=== PATIENT | male | born 1990 | race Caucasian/White ===

== ENCOUNTER 2020-10-21 09:08 | Outpatient (REF) | payer OTHER, SELFPAY ==
[2020-10-21 10:07] LABS: MANUAL DIFF FLAG NO
[2020-10-21 10:15] LABS: Basophils Absolute Auto 0.1 X10*3/uL (0.0-0.2); Basophils Percent Auto 1.6 % (0-2); Eosinophils Absolute Auto 0.2 X10*3/uL (0.0-0.4); Eosinophils Percent Auto 3.5 % (0-4); Hematocrit 45.4 % (42-52); Hemoglobin 16.2 g/dl (14.0-18.0); Imm Gran Abs Auto 0.01 X10*3/uL (0.00-0.03); Imm Gran Pct Auto 0.2 % (0.0-0.4); Lymphocytes Absolute Auto 1.9 X10*3/uL (1.2-4.9); Lymphocytes Percent Auto 31.3 % (20-40); Mean Corpuscular HGB Conc 35.7 g/dl (31.0-36.0); Mean Corpuscular Hemoglobin 31.4 pg (27.0-33.0); Mean Platelet Volume 11.7 fL (9.4-12.4); Monocytes Absolute Auto 0.4 X10*3/uL (0.1-1.2); Monocytes Percent Auto 6.6 % (2-11); Neutrophils Absolute Auto 3.5 X10*3/uL (2.0-8.3); Neutrophils Percent Auto 56.8 % (45-73); Platelet Count 238 X10*3/uL (160-400); Red Blood Count 5.16 X10*6/uL (4.60-5.80); Red Cell Distribution Width 12.2 % (11.0-16.0); White Blood Count 6.1 X10*3/uL (4.8-10.8)
[2020-10-21 10:31] LABS: Alanine Aminotransferase 32 U/L (0-40); Albumin Level 4.8 g/dL (3.5-5.0); Alkaline Phosphatase 75 U/L (39-117); Anion Gap 12 (12-20); Aspartate Amino Transferase 30 U/L (5-37); Bilirubin Total 0.8 mg/dL (0.0-1.0); Blood Urea Nitrogen 18 mg/dL (9-16); Calcium 9.6 mg/dL (8.4-10.2); Carbon Dioxide 29 mmol/L (22-29); Chloride 104 mmol/L (96-108); Cholesterol 196 mg/dL; Estimated Glomerular Filt Rate > 60; Glucose Fasting 86 mg/dL (60-99); HDL Cholesterol 32 mg/dL; LDL Cholesterol Calculated 134 mg/dl; Potassium 4.2 mmol/L (3.3-5.1); Sodium 141 mmol/L (135-145); Total Protein 7.7 g/dL (6.5-8.0); Triglycerides 153 mg/dL
[2020-10-21 10:53] LABS: TSH reflex Free T4 1.63 uIU/mL (0.32-4.0)
[2020-10-21 10:56] LABS: Creatinine Urine 180.84 mg/dL; Microalbumin Urine < 5.0 mg/L
[2020-10-21 12:08] LABS: CT PCR NOT DETECTED (Not Detect.); NG PCR NOT DETECTED (Not Detect.)
[2020-10-23 08:03] LABS: HBS Num1 2.18 mIU/mL (0-7.99); HBc Num1 0.14 S/CO (0.00-0.79); HBsAGNum1 0.29 S/CO (0.00-0.99); Hepatitis B Core Antibody Nonreactive (Nonreactive); Hepatitis B Surface Antigen Negative (Negative); ~Hepatitis B Surface Antibody NONREACTIVE (Nonreactive)
[2020-10-23 08:08] LABS: HIV AB/AG Nonreactive (Nonreactive); HIV Num 1 0.05 S/CO (0.00-0.99); ~HepC Num1 0.07 S/CO (0.00-0.79); ~Hepatitis C Antibody Nonreactive (Nonreactive)
[2020-10-23 08:44] LABS: Syphilis Screen Nonreactive (Nonreactive)
== END 2020-10-21 09:09 | disposition home or self-care (01) ==
LOC: HO.LAB 09:08
PROVIDERS: PCP Family Medicine; Visit Provider Family Medicine
DX: Z00.00 Encounter for general adult medical examination without abnormal findings (principal); Z11.3 Encounter for screening for infections with a predominantly sexual mode of transmission; Z11.4 Encounter for screening for human immunodeficiency virus [HIV]; I10 Essential (primary) hypertension
CPT/HCPCS: 80053; 80061; 82043; 84443; 85025; 86704; 86706; 86780; 86803; 87340; 87389; 87491; 87591

== ENCOUNTER 2021-12-07 16:42 | Outpatient (REF) | payer OTHER, SELFPAY ==
--- NOTE | ~2021-12-07 | XR_ITS ---
EXAMINATION: XR HAND, LEFT CLINICAL INFORMATION: Unspecified injury of left wrist, hand and fingers. COMPARISON: None TECHNIQUE: PA, lateral, and oblique views of the left hand. FINDINGS: The bones and soft tissues are normal. No fracture. Alignment is anatomic. Joint spaces are maintained. No erosions or soft tissue calcifications. XR/XR hand LT 2V IMPRESSION: No acute osseous abnormality.
== END 2021-12-07 16:43 | disposition home or self-care (01) ==
LOC: HO.XRAY 16:42
PROVIDERS: PCP Family Medicine; Visit Provider Family Medicine
DX: S69.92XA Unspecified injury of left wrist, hand and finger(s), initial encounter (principal)
CPT/HCPCS: 73120

== ENCOUNTER 2023-12-02 15:44 | Outpatient (AMB) | payer OTHER, SELFPAY ==
--- NOTE | 2023-12-02 15:51 | MHC.PC.OV ---
Vital Signs 12/02/23 15:54 Height 6 ft 3 in Weight 235 lb 2 oz BMI 29.4 BP 140/62 H Blood Pressure Location Lt brachial Position Sitting Pulse 62 Pulse Source Pulse Oximeter Pulse Oximetry (%) 100 Oxygen Delivery Method Room Air Intake Visit Reasons: CPE Follow up labs Intake Note: Patient is here for his physical today, would like referral for sleep medicine, he snores, and wakes up in the middle of the night, doesn't feel well rested, and would like to get back on Celexa again. Allergies No Known Allergies Allergy (Verified 12/07/21 16:03) Medication List - Last Reconciled 12/02/23 by Asif Linares MD citalopram 40 mg PO DAILY 30 days lisinopril 20 mg PO DAILY 30 days metoprolol succinate ER 25 mg PO DAILY Tobacco use date assessed: 12/02/23 Dental Screening Dental Screen Date: 12/02/23 Did you have a dental visit in the last 12 months?: Yes Did you have a dental problem in the last 6 months where you did not have access to dental care?: No Was dental information given to patient?: Yes HPI CPE Follow up labs HPI Details 33 y/o male presents for a CPE with f/u labs and health maintenance. No recent labs to review. Blood pressure today 140/62. He states he is no longer on metoprolol 25mg. HPI Comments History of Present Illness Details Documentation assistance for Asif Linares MD, was provided by Taurus Contreras, Mounting Machine Operator on 12/02/2023 at 4:56 PM EST. I, Dr. Linares, have read, observed, and verified documentation. [facility] Medical History Sciatica Anxiety HBP (high blood pressure) SVT (supraventricular tachycardia) Surgical History [place] teeth extracted Family History (Updated 12/02/23 @ 16:06 by Lashawn Grady CMA) Father High cholesterol Mother Substance abuse in family Brother Substance abuse in family Other Mental health disorder Social History Housing: Apartment Alcohol intake: current Alcohol intake frequency: holidays/special occasions only Alcohol type: beer Patient Tobacco Use Status: Never used Tobacco e-Cigarette/Vaping Use: Never Used Second Hand Smoke Exposure: No service: No Current occupational status: employed 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 1. Little interest or pleasure in doing things: several days 2. Feeling down, depressed, or hopeless: several days 3. Trouble falling or staying asleep, or sleeping too much: nearly every day 4. Feeling tired or having little energy: nearly every day 5. Poor appetite or overeating: not at all 6. Feeling bad about yourself - or that you are a failure or have let yourself or your family down: several days 7. Trouble concentrating on things, such as reading the newspaper or watching television: several days 8. Moving or speaking so slowly that other people could have noticed. Or the opposite - being so fidgety or restless that you have been moving around a lot more than usual: several days 9. Thoughts that you would be better off or of hurting yourself in some way: not at all Total score: 11 Depression Screening Interpretation: Positive Depression Screening Done: Yes 42839 - PHQ-9 Billing: Yes Source: Developed by Drs. Gelacio Gillette, Yuni Frey, Stan Patel and colleagues, with an educational lissy from [employer]. Thrive Questionnaire Date Thrive assessed: 12/02/23 I am a: Patient What is your living situation today?: I have a steady place to live Within the past 12 months, did the food you bought not last and you didn't have the money to get more?: Never true Within the past 12 months, did you worry whether your food would run out before you got money to buy more?: Never true Do you have trouble paying for medicines?: No Do you have trouble getting transportation to medical appointments?: No Do you have trouble paying your heating and electricity bill?: No Do you have trouble taking care of your child, family member or friend?: No Do you have trouble with day-to-day activities such as bathing, preparing meals, shopping, managing finances, etc.?: No Are you currently unemployed and looking for a job?: No Are you interested in more education?: No THRIVE Score: 0 AUDIT C Alcohol Use Questionnaire (AUDIT-C) 1. How often do you have a drink containing alcohol?: 2-3 times a week 2. How many drinks containing alcohol do you have on a typical day when you are drinking?: 7 to 9 3. How often do you have six or more drinks on one occasion?: Weekly Total Score: 9 AVERY-7 AMB Questionnaire AVERY-7 Date AVERY - 7 assessed: 12/02/23 Feeling nervous, anxious, or on edge: 3 = Nearly every day Not being able to stop or control worryin = Nearly every day Worrying too much about different things: 3 = Nearly every day Trouble relaxin = Nearly every day Being so restless that it is hard to sit still: 1 = Several days Becoming easily annoyed or irritable: 3 = Nearly every day Feeling afraid as if something awful might happen: 1 = Several days Total AVERY-7 score (0-4 normal; 5-9 mild; 10-14 moderate; 15-21 severe): 17 Source: Developed by Drs. Gelacio Gillette, Yuni Frey, Stan Patel and colleagues, with an educational lissy from [employer]. AVERY-7 Assessment Billing AVERY-7 Assessment Tool: AVERY-7 Assessment 73951 Review of Systems Const Denies chills, Denies fatigue, Denies fever(s), Denies headache(s) and Denies weakness Eyes Denies change in vision ENT Denies dizziness and Denies headache(s) Card Denies dyspnea Resp Denies cough, Denies dyspnea, Denies wheezing and Denies other (shortness of breath) GI Denies abdominal pain, Denies melena, Denies hematochezia, Denies change in bowel habits, Denies dyspepsia and Denies nausea Denies hematuria and Denies dysuria Musc Denies numbness and Denies tingling Skin/Breast Denies rash, Denies unusual bruising and Denies wounds Neuro Denies dizziness, Denies headache(s), Denies numbness, Denies Sensory deficit (Neuro), Denies tingling and Denies weakness Psych Reports anxiety and Reports depression Endo Denies fatigue Jareth/Lymph Denies easy bleeding and Denies easy bruising Aller/Immun Denies wheezing Physical exam (Primary Care) Vital Signs: Last Vital Signs Pulse 62 12/02/23 15:54 BP 140/62 H 12/02/23 15:54 Pulse Ox 100 12/02/23 15:54 Oxygen Delivery Method Room Air 12/02/23 15:54 BMI result Body Mass Index 29.4 Tobacco/Smoking Status: Tobacco use Status Tobacco use date assessed 12/02/23 12/02/23 16:10 Patient Tobacco Use Status Never used Tobacco 12/02/23 15:53 e-Cigarette/Vaping Use Never Used 12/02/23 15:53 PHQ-9: PHQ-9 Score PHQ-9: Total score 11 12/02/23 16:42 Depression Screening Interpretation: Positive Thrive Assessment: Date of Thrive Assessment Date Thrive assessed 12/02/23 12/02/23 16:10 Const General: well developed; No acute distress Nutritional Appearance: well nourished Orientation/consciousness: patient oriented x3 HENMT Head: Yes normocephalic and Yes atraumatic Ears: hearing grossly normal bilaterally and TM's normal bilaterally General nose exam: Normal external nose present and Normal nares present Mouth: Normal oral and palatal mucosa present and moist mucous membranes Teeth and gingiva: dentition normal Throat: Yes posterior oropharynx normal Eyes General: appearance normal, both eyes and all related structures Pupils: Equal, round and reactive pupils present EOM: EOMs intact bilaterally Neck Neck: Yes normal visual inspection, Yes no lymphadenopathy and Yes trachea midline Thyroid: Thyroid normal Carotids: no bruits Lymphatic: no lymphadenopathy noted Chest Chest palpation & inspection: normal inspection of the chest Resp Effort & Inspection: normal respiratory effort Auscultation: clear to auscultation bilaterally Cardio Rate: regular rate Rhythm: regular rhythm Heart sounds: S1 normal heart sound present, S2 normal heart sound present, no gallops, no murmurs and no rubs Bruits: no abdominal aortic bruits and no carotid bruits GI Palpation (GI): No Abdominal aortic bruit present, Soft to palpation, nontender, No hepatosplenomegaly present and No Rebound tenderness present Auscultation: normal bowel sounds General: Yes no CVA tenderness Back/Spine/Pelvis Back: no CVA tenderness Cervical Spine: cervical ROM normal and No Cervical spine tenderness Thoracic/Lumbar Spine: thoraco-lumbar ROM normal, No pain with thoraco-lumbar ROM, No thoracic spinal tenderness and No lumbar spinal tenderness Skin Lesions: no lesions Rashes: no rashes Trauma: no lacerations or abrasions Wounds: no wounds Nails: normal Neuro General: patient oriented x3 and gait normal Cranial nerves: Yes Equal, round and reactive pupils present Cognition (Neuro): normal cognition Gait exam (Neuro): Normal gait present Motor exam (neuro): 5/5 motor strength present throughout Sensory Exam: No Sensory deficit (Neuro) Deep tendon reflexes (DTR's): Right patellar reflex intensity grade: 2+ and Left patellar reflex intensity grade: 2+ Extrem General: Yes normal to inspection and No edema Psych Appearance: grossly normal Affect: normal affect Attitude: cooperative Thought process: Normal thought process present Assessment and Plan Assessment & Plan (1) Annual physical exam: Code(s): Z00.00 - Encounter for general adult medical examination without abnormal findings Plan: 33-year-old?male?presents?for?complete?physical?exam Encouraged?healthy?diet?with?active?lifestyle?and?plenty?of?exercise (2) Essential hypertension: Code(s): I10 - Essential (primary) hypertension Plan: Blood?pressure?is?high. Will?start?lisinopril.??He?had?been?on?beta-nikko?in?the?past?due?to?some?tachycardia?but?this?has?not?recurred?and?heart?rate?is?62?today. Will?follow-up?in?about?a?month Blood?pressure?may?also?be?elevated?due?to?sleep?apnea.??We?may?be?able?to?discontinue?this?medication?if?blood?pressure?is?better?once?sleep?apnea?is?treated (3) Sleep apnea: Code(s): G47.30 - Sleep apnea, unspecified Plan: Referred?to?Sleep?Medicine (4) Depression with anxiety: Code(s): F41.8 - Other specified anxiety disorders Plan: Patient?had?been?on?citalopram?in?the?past He?will?restart?this?medication He?can?start?at?20?mg?daily?and?titrate?up?to?40?mg?daily?if?he?would?like. Orders: Orders Comprehensive [place]. Panel Fast Today Z00.00 - Encounter for general adult medical examination without abnormal findings TSH reflex Free T4 Today Z00.00 - Encounter for general adult medical examination without abnormal findings Complete Blood Count Auto Diff Today Z00.00 - Encounter for general adult medical examination without abnormal findings Lipid Panel Today Z00.00 - Encounter for general adult medical examination without abnormal findings Microalbumin, Random (w Creat) Today I10 - Essential (primary) hypertension UA and rflx microscopic Today Z00.00 - Encounter for general adult medical examination without abnormal findings Referrals Sleep Medicine Referral G47.30 - Sleep apnea, unspecified Medications: New lisinopril 20 mg PO DAILY 30 days 30 tabs 2RF Refilled citalopram 40 mg PO DAILY 30 days 30 tabs 2RF Coding Level of Care Code Est Pt Level 3 (22081) Est Pt Prev Care 18-39y(81284) Diagnoses Annual physical exam Z00.00 Essential hypertension I10 Sleep apnea G47.30 Depression with anxiety F41.8 Additional Codes AVERY-7 Assessment Billing - AVERY-7 Assessment Tool: AVERY-7 Assessment 07953 ([id number])
[2023-12-02 15:54] VITALS: BP 140/62; PULSE 62; O2SAT 100; BMI 29.4
== END 2023-12-02 16:59 | disposition home or self-care (01) ==
PROVIDERS: PCP Family Medicine; Visit Provider Family Medicine
DX: Z00.00 Encounter for general adult medical examination without abnormal findings (principal); I10 Essential (primary) hypertension; G47.30 Sleep apnea, unspecified; F41.8 Other specified anxiety disorders
CPT/HCPCS: 96127; 99213; 99395

== ENCOUNTER 2024-06-14 07:48 | Outpatient (AMB) | payer OTHER, SELFPAY ==
--- NOTE | 2024-06-14 07:56 | MHC.OFFVIS ---
Vital Signs 06/14/24 07:58 Height 6 ft 3 in Weight 259 lb BMI 32.4 Intake Visit Reasons: INP- MARY AN[facility] Intake Note: Patient presents for MARY ANNE. Allergies No Known Allergies Allergy (Verified 06/14/24 08:00) Medication List - Last Reconciled 06/14/24 by Katelyn Reilly MD citalopram 20 mg PO DAILY 90 days fluticasone propionate 50 mcg/actuation (Flonase Allergy Relief) 1 spray intranasal BID lisinopril 20 mg PO DAILY 30 days metoprolol succinate ER 25 mg PO DAILY HPI Comments Details: 33y/o comes for sleep evaluation . Main complaints-Frequent arousals, snoring , gasping arousals, hypersomnia Sleep questionnaire- Difficulty falling asleep-no Difficulty staying asleep-yes Number of [id number] Snoring-yes Witnessed apneas-no Gasping arousals-yes Nocturia-no GERD-yes Vivid dreams-no Acting out dreams -no Abnormal behavior in sleep-/no ABnormal movements in sleep-no Morning headaches-yes Excessive daytime sleepiness-yes Daytime naps- yes restless legs- no Hallucinations-no sleep paralysis- no Drop attacks-no Sleep study-yes- 9 years ago Home sleep study 3 hrs was recorded and was inconclusive. PENDING SALE TO [facility] Medical History (Updated 06/14/24 @ 08:21 by Katelyn Reilly MD) Hypersomnia Snoring Sciatica Anxiety HBP (high blood pressure) SVT (supraventricular tachycardia) Surgical History [place] teeth extracted Family History Father High cholesterol Mother Substance abuse in family Brother Substance abuse in family Other Mental health disorder Social History Housing: Apartment Alcohol intake: current Alcohol intake frequency: holidays/special occasions only Alcohol type: beer Patient Tobacco Use Status: Never used Tobacco e-Cigarette/Vaping Use: Never Used Second Hand Smoke Exposure: No service: No Current occupational status: employed 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 Current occupational exposures/hazards: No Cognitive needs: No Hearing needs: No Vision needs: No Physical Exam Vital Signs: BMI result Body Mass Index 32.4 Const General: cooperative, healthy appearing, comfortable and anxious Nutritional Appearance: obese Orientation/consciousness: patient oriented x3 Neuro General: patient oriented x3, gait normal, tone normal, moves all extremities and no focal motor deficits Assessment & Plan Assessment & Plan (1) Snoring: Code(s): R06.83 - Snoring Category: Medical (2) Hypersomnia: Code(s): G47.10 - Hypersomnia, unspecified Category: Medical Plan Will schedule him for an in lab sleep study to evaluate for sleep apnea. Orders: Orders RT PSG in-lab sleep study Today G47.10 - Hypersomnia, unspecified, I10 - Essential (primary) hypertension, I47.10 - Supraventricular tachycardia, unspecified, R06.83 - Snoring Medications: New fluticasone propionate 50 mcg/actuation (Flonase Allergy Relief) administer into each nostril 1 spray intranasal BID 16 grams 4RF Coding Level of Care Code New Pt Level 3 (38357) Diagnoses Snoring R06.83 Hypersomnia G47.10 [place] Sleepiness Scale Questions Sitting and reading: high chance of dozing Watching TV: high chance of dozing Sitting inactive in a theater, movie etc.: moderate chance of dozing As a passenger in a car for an hour without break: moderate chance of dozing Lying down in the afternoon when circumstances permit: high chance of dozing Sitting and talking to someone: would never doze Sitting quietly after lunch without alcohol: high chance of dozing In a car, while stopped for a few minutes in the traffic: would never doze ESS < 10: normal, ESS > 12: pathologic: 16
[2024-06-14 07:58] VITALS: BMI 32.4
== END 2024-06-14 08:26 | disposition home or self-care (01) ==
PROVIDERS: PCP Family Medicine; Visit Provider Psychiatry & Neurology Neurology
DX: R06.83 Snoring (principal); G47.10 Hypersomnia, unspecified
CPT/HCPCS: 99203

== ENCOUNTER → 2024-06-14 07:48 | Outpatient (BNVA) | payer OTHER, SELFPAY | PROVIDERS: PCP Family Medicine; Visit Provider Psychiatry & Neurology Neurology ==

== ENCOUNTER 2024-06-17 10:57 | Outpatient (AMB) | payer OTHER, SELFPAY ==
--- NOTE | 2024-06-17 11:07 | A.OFFPC_ITS ---
Vital Signs 06/17/24 11:09 Height 6 ft 3 in Weight 256 lb 8 oz BMI 32.1 BP 130/90 H Blood Pressure Location Rt brachial Position Sitting Respiration 16 Pulse 97 Pulse Source Pulse Oximeter Pulse Oximetry (%) 99 Oxygen Delivery Method Room Air Intake Visit Reasons: ED FOLLOW FROM [facility] Intake Note: ed follow up Allergies No Known Allergies Allergy (Verified 06/17/24 11:08) Tobacco use date assessed: 12/02/23 Dental Screening Dental Screen Date: 12/02/23 HPI ED FOLLOW FROM [facility] HPI Details 33 y/o male presents to f/u ED visit for palpitations. Workup at the hospital was reassuring. He notes palpitations for 4-5 hours had prompted him to go to the hospital. He notes symptoms started when he woke up. He does have an appt. with sleep study. [facility] Medical History (Updated 06/17/24 @ 11:51 by Taurus Contreras) Hypersomnia Snoring Sciatica Anxiety HBP (high blood pressure) SVT (supraventricular tachycardia) Surgical History [place] teeth extracted Family History Father High cholesterol Mother Substance abuse in family Brother Substance abuse in family Other Mental health disorder Social History Housing: Apartment Alcohol intake: current Alcohol intake frequency: holidays/special occasions only Alcohol type: beer Patient Tobacco Use Status: Never used Tobacco e-Cigarette/Vaping Use: Never Used Second Hand Smoke Exposure: No service: No Current occupational status: employed 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 Gelacio Gillette, Yuni Frey, Stan Patel and colleagues, with an educational lissy from [employer]. Review of Systems Const Denies chills, Denies fatigue, Denies fever(s), Denies headache(s) and Denies weakness ENT Denies dizziness and Denies headache(s) Card Denies chest pain, Denies lightheadedness, Denies dyspnea and Denies other (Palpitations) Resp Denies cough, Denies dyspnea, Denies wheezing and Denies other ( shortness of breath) Musc Denies numbness and Denies tingling Neuro Denies dizziness, Denies headache(s), Denies numbness, Denies tingling, Denies paresthesias and Denies weakness Psych Denies anxiety and Denies depression Endo Denies fatigue Aller/Immun Denies wheezing Physical exam (Primary Care) Vital Signs: Last Vital Signs Pulse 97 06/17/24 11:09 Resp 16 06/17/24 11:09 BP 130/90 H 06/17/24 11:09 Pulse Ox 99 06/17/24 11:09 Oxygen Delivery Method Room Air 06/17/24 11:09 BMI result Body Mass Index 32.1 Tobacco/Smoking Status: Tobacco use Status Tobacco use date assessed 12/02/23 06/17/24 11:11 Patient Tobacco Use Status Never used Tobacco 06/17/24 11:11 e-Cigarette/Vaping Use Never Used 06/17/24 11:11 Thrive Assessment: Date of Thrive Assessment Date Thrive assessed 12/02/23 06/17/24 11:11 Const General: no acute distress and well developed Nutritional Appearance: well nourished Orientation/consciousness: patient oriented x3 [facility]: Yes normocephalic and Yes atraumatic Eyes General: appearance normal, both eyes and all related structures Pupils: Equal, round and reactive pupils present EOM: EOMs intact bilaterally Resp Effort & Inspection: normal respiratory effort Auscultation: clear to auscultation bilaterally Cardio Rate: regular rate Rhythm: regular rhythm Heart sounds: S1 normal heart sound present, S2 normal heart sound present, no gallops, no murmurs and no rubs Neuro General: patient oriented x3 and gait normal Cranial nerves: Yes Equal, round and reactive pupils present Psych Affect: normal affect Coding Level of Care Code Est Pt Level 3 (34334) Diagnoses Palpitations R00.2 Assessment & Plan Assessment & Plan (1) Palpitations: Code(s): R00.2 - Palpitations Category: Medical Plan: Patient?will?with?palpitations?and?went?to?the?emergency?department. Workup?was?essentially?negative for?EKG,?chest?x-ray?and?lab?work. Of?note,?patient?says?he?has?an?upcoming?appointment?with?sleep?medicine?to?eval uate?for?sleep?apnea?and?his?symptoms?were?in?the?morning?when?he?woke?up. He?has?had?no?other?episodes?since?is?ED?visit. Likely?palpitations?secondary?to?sleep?apnea.??Follow-up?with?sleep?medicine. EKG?today: Will?check?Holter?monitor?to?see?if?patient?has any?arrhythmias?while?sleeping. Will?refer?to?Cardiology Avoid?caffeine,?energy?drinks. Ensure?your?sleeping?on?your?side?follow-up?with?sleep?medicine. Orders: Orders ECG holter monitor 48 hour Today R00.2 - Palpitations AMB EKG-In Office Today R00.2 - Palpitations
[2024-06-17 11:09] VITALS: BP 130/90; PULSE 97; RESP 16; O2SAT 99; BMI 32.1
== END 2024-06-17 12:32 | disposition home or self-care (01) ==
PROVIDERS: PCP Family Medicine; Visit Provider Family Medicine
DX: R00.2 Palpitations (principal)

== ENCOUNTER → 2024-06-23 07:35 | Outpatient (REF) | payer OTHER, SELFPAY | LOC: HO.CARD 07:35 | PROVIDERS: PCP Family Medicine; Visit Provider Family Medicine | DX: R00.2 Palpitations (principal) | CPT/HCPCS: 93225 ==

== ENCOUNTER → 2024-06-23 07:37 | Outpatient (BNV) | payer OTHER, SELFPAY | PROVIDERS: PCP Family Medicine; Visit Provider Internal Medicine Cardiovascular Disease | DX: R00.0 Tachycardia, unspecified (principal) | CPT/HCPCS: 93227 ==

== ENCOUNTER → 2024-07-07 20:30 | Outpatient (REF) | payer OTHER, SELFPAY | LOC: HO.SL 20:30 | PROVIDERS: PCP Family Medicine; Visit Provider Psychiatry & Neurology Neurology | DX: G47.10 Hypersomnia, unspecified (principal); R06.83 Snoring; I10 Essential (primary) hypertension; I47.10 Supraventricular tachycardia, unspecified | CPT/HCPCS: 95810 ==

== ENCOUNTER → 2024-07-07 21:35 | Outpatient (BNV) | payer OTHER, SELFPAY | PROVIDERS: PCP Family Medicine; Visit Provider Psychiatry & Neurology Neurology | DX: G47.10 Hypersomnia, unspecified (principal); R06.83 Snoring | CPT/HCPCS: 95810 ==

== ENCOUNTER → 2024-07-27 08:54 | Outpatient (BNVA) | payer OTHER, SELFPAY | PROVIDERS: PCP Family Medicine; Visit Provider Family Medicine ==

== ENCOUNTER 2024-08-09 10:43 | Outpatient (AMB) | payer OTHER, SELFPAY ==
--- NOTE | 2024-08-09 11:11 | MHC.PC.OV ---
Vital Signs 08/09/24 11:13 Height 6 ft 3 in Weight 266 lb 8 oz BMI 33.3 BP 140/80 H Blood Pressure Location Rt brachial Position Sitting Respiration 16 Pulse 88 Pulse Source Pulse Oximeter Temp 97.9 F Temp Source Oral Pulse Oximetry (%) 98 Oxygen Delivery Method Room Air Intake Visit Reasons: Holter monitor, Lab review and sleep study Intake Note: holter monitor review Percussion Teacher Required: No Allergies No Known Allergies Allergy (Verified 08/09/24 11:12) Medication List - Last Reconciled 08/09/24 by Asif Linares MD citalopram 20 mg PO DAILY 90 days fluticasone propionate 50 mcg/actuation (Flonase Allergy Relief) 1 spray intranasal BID lisinopril 20 mg PO DAILY 30 days Tobacco use date assessed: 12/02/23 Dental Screening Dental Screen Date: 12/02/23 HPI Holter monitor, Lab review and sleep study HPI Details 33 y/o male presents to f/u palpitations. Holter monitor test was reassuring. I do not see any notes from sleep medicine yet. He reports no recent episodes of palpitations. Blood pressure today 140/80, 88p. He is on lisinopril 20mg daily. HPI Comments History of Present Illness Details Documentation assistance for Asif Linares MD, was provided by Taurus Contreras,? Electronic Page Makeup System Operator on 08/09/2024 at 11:43 AM EST. I, Dr. Linares, have read, observed, and verified documentation. ?? [facility] Medical History (Updated 06/17/24 @ 12:38 by Asif Linares MD) Hypersomnia Snoring Sciatica Anxiety HBP (high blood pressure) SVT (supraventricular tachycardia) Surgical History [place] teeth extracted Family History Father High cholesterol Mother Substance abuse in family Brother Substance abuse in family Other Mental health disorder Social History Housing: Apartment Alcohol intake: current Alcohol intake frequency: holidays/special occasions only Alcohol type: beer Patient Tobacco Use Status: Never used Tobacco e-Cigarette/Vaping Use: Never Used Second Hand Smoke Exposure: No service: No Current occupational status: employed 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 Current occupational exposures/hazards: No Cognitive needs: No Hearing needs: No Vision needs: No Questionnaire Thrive Questionnaire Date Thrive assessed: 07/27/24 I am a: Patient What is your living situation today?: I have a steady place to live Within the past 12 months, did the food you bought not last and you didn't have the money to get more?: Never true Within the past 12 months, did you worry whether your food would run out before you got money to buy more?: Never true Do you have trouble paying for medicines?: No Do you have trouble getting transportation to medical appointments?: No Do you have trouble paying your heating and electricity bill?: No Do you have trouble taking care of your child, family member or friend?: No Do you have trouble with day-to-day activities such as bathing, preparing meals, shopping, managing finances, etc.?: No Are you currently unemployed and looking for a job?: No Are you interested in more education?: Yes Please select the resources that you would like help with: None Currently or been in a relationship where the following occur: No concerns reported THRIVE Score: 0 AVERY-7 AMB Questionnaire AVERY-7 Date AVERY - 7 assessed: 12/02/23 Source: Developed by Drs. Gelacio Gillette, Yuni Frey, Stan Patel and colleagues, with an educational lissy from [employer]. Review of Systems Const Denies chills, Denies fatigue, Denies fever(s), Denies headache(s) and Denies weakness ENT Denies dizziness and Denies headache(s) Card Denies dyspnea Resp Denies cough, Denies dyspnea, Denies wheezing and Denies other (shortness of breath) Musc Denies numbness and Denies tingling Neuro Denies dizziness, Denies headache(s), Denies numbness, Denies tingling and Denies weakness Psych Denies anxiety and Denies depression Endo Denies fatigue Aller/Immun Denies wheezing Physical exam (Primary Care) Vital Signs: Last Vital Signs Temp 97.9 F 08/09/24 11:13 Pulse 88 08/09/24 11:13 Resp 16 08/09/24 11:13 BP 140/80 H 08/09/24 11:13 Pulse Ox 98 08/09/24 11:13 Oxygen Delivery Method Room Air 08/09/24 11:13 BMI result Body Mass Index 33.3 Tobacco/Smoking Status: Tobacco use Status Tobacco use date assessed 12/02/23 08/09/24 11:11 Patient Tobacco Use Status Never used Tobacco 08/09/24 11:11 e-Cigarette/Vaping Use Never Used 08/09/24 11:11 Thrive Assessment: Date of Thrive Assessment Date Thrive assessed 07/27/24 08/09/24 11:11 Currently or been in a relationship where the following occur: No concerns reported Const General: well developed; No acute distress Nutritional Appearance: well nourished Orientation/consciousness: patient oriented x3 HENMT Head: Yes normocephalic and Yes atraumatic Eyes General: appearance normal, both eyes and all related structures Pupils: Equal, round and reactive pupils present EOM: EOMs intact bilaterally Resp Effort & Inspection: normal respiratory effort Auscultation: clear to auscultation bilaterally Cardio Rate: regular rate Rhythm: regular rhythm Heart sounds: S1 normal heart sound present, S2 normal heart sound present, no gallops, no murmurs and no rubs Neuro General: patient oriented x3 and gait normal Cranial nerves: Yes Equal, round and reactive pupils present Psych Affect: normal affect Coding Level of Care Code Est Pt Level 4 (40412) Diagnoses Palpitations R00.2 Sleep apnea G47.30 Essential hypertension I10 Assessment & Plan Assessment & Plan (1) Palpitations: Code(s): R00.2 - Palpitations Category: Medical Plan: Holter?monitor?is?normal. EKG?was?also?normal Patient?no?longer?has?symptoms He?will?let?know?if?anything?changes (2) Sleep apnea: Code(s): G47.30 - Sleep apnea, unspecified Category: Medical Plan: Patient?has?undergone?sleep?study. Will?request?report Follow-up?with?sleep?medicine (3) Essential hypertension: Code(s): I10 - Essential (primary) hypertension Category: Medical Plan: Blood?pressure?is?elevated?today. Was?well?controlled?at?recent?visit. No?changes?to?lisinopril Continue?current?medication.??We?will?follow-up?in?a?few?months.??If?still?elevated?will?adjust?his?medication.
[2024-08-09 11:13] VITALS: BP 140/80; PULSE 88; RESP 16; TEMP 36.6; O2SAT 98; BMI 33.3
== END 2024-08-09 11:51 | disposition home or self-care (01) ==
PROVIDERS: PCP Family Medicine; Visit Provider Family Medicine
DX: R00.2 Palpitations (principal); G47.30 Sleep apnea, unspecified; I10 Essential (primary) hypertension

== ENCOUNTER → 2024-08-09 10:43 | Outpatient (BNVA) | payer OTHER, SELFPAY | PROVIDERS: PCP Family Medicine; Visit Provider Family Medicine ==